=== PATIENT | male | born 1975 | race Asian ===

== ENCOUNTER 2019-07-21 13:41 | Emergency (ER) | payer OTHER, SELFPAY ==
[2019-07-21 13:47] VITALS: BP 134/87; PULSE 81; RESP 16; TEMP 36.9; O2SAT 97; BMI 26.3
--- NOTE | 2019-07-21 14:26 | ED.GENADULT ---
HPI - General Adult General Chief complaint: Diabetic Problem Stated complaint: Diabetic, shaking Time Seen by Provider: 07/21/19 13:51 Source: patient Mode of arrival: ambulatory Limitations: no limitations History of Present Illness HPI narrative: Patient comes emergency department complaining of shakiness and wondering if his blood sugars low. Patient is a diabetic who is been stable on the same dose of metformin for years, but states that he has not eaten as much today as he normally would. 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 He states that he normally eats rice in the morning, but this morning, only had a couple of bananas and later, a snack. Patient has been taking his medications as usual. Patient denies any recent heavy alcohol intake. No recent illness. He is not feeling ill in any way. No nausea or vomiting. No chest pain or shortness of breath. No other complaints at this time. Related Data Home Medications Medication Instructions Recorded Confirmed metformin 500 mg PO DAILY 07/21/19 simvastatin 20 mg PO DAILY 07/21/19 07/21/19 Allergies Allergy/AdvReac Type Severity Reaction Status Date / Time No Known Drug Allergies Allergy Verified 07/21/19 13:47 Review of Systems Review of Systems ROS Unobtainable: All systems reviewed & are unremarkable except as noted in HPI and below Constitutional Constitutional: Denies chills, Denies fatigue, Denies fever(s), Denies frequent falls, Denies lethargy and Denies weakness Eyes Eyes: Denies change in vision, Denies eye discharge, Denies irritation and Denies loss of vision ENT Ears, Nose, Mouth, and Throat: Denies change in voice, Denies dizziness, Denies neck pain, Denies sore throat and Denies throat swelling Cardiovascular Cardiovascular: Denies chest pain, Denies irregular heart rhythm, Denies lightheadedness, Denies palpitations, Denies dyspnea, Denies dyspnea on exertion and Denies orthopnea Respiratory Respiratory: Denies cough, Denies dyspnea, Denies dyspnea on exertion and Denies wheezing Gastrointestinal Gastrointestinal: Denies abdominal pain, Denies change in bowel habits, Denies diarrhea, Denies nausea and Denies vomiting Genitourinary Genitourinary: Denies hematuria, Denies flank pain, Denies urinary incontinence and Denies urinary urgency Musculoskeletal Musculoskeletal: Denies back pain, Denies muscle weakness, Denies neck pain, Denies numbness and Denies tingling Integumentary/Breasts Skin/Breast: Denies pruritus, Denies erythema, Denies rash and Denies wounds Neurologic Neurologic: Denies behavioral changes, Denies confusion, Denies dizziness, Denies frequent falls, Denies loss of vision, Denies numbness, Denies tingling and Denies weakness Psychiatric Psychiatric: Denies anxiety, Denies behavioral changes, Denies confusion, Denies depression, Denies homicidal ideation and Denies suicidal ideation Endocrine Endocrine: Denies fatigue, Denies flushing and Denies palpitations Hematologic/Lymphatic Hematologic/Lymphatic: Denies easy bruising Allergic/Immunologic Allergic/Immunologic: Denies urticaria, Denies throat swelling and Denies wheezing [facility] Medical History Diabetes mellitus (Acute) Hyperlipidemia (Acute) Surgical History No pertinent past surgical history (Acute) Social History Smoking Status: Never smoker Social History Smoking Status: Never smoker Exam Initial Vital Signs Initial Vital Signs: Vital Signs Temperature 98.5 F 07/21/19 13:47 Pulse Rate 81 07/21/19 13:47 Respiratory Rate 16 07/21/19 13:47 Blood Pressure 134/87 07/21/19 13:47 Pulse Oximetry 97 07/21/19 13:47 Const General: cooperative and well developed Nutritional Appearance: well nourished Orientation: alert, awake, oriented x3 and not confused [facility] Head: normocephalic and atraumatic Ears: external ears normal Nose: external nose normal and No nasal discharge Face and sinus: face symmetric and No dry mucous membranes Mouth: oral mucosae normal and moist mucous membranes Teeth and gingiva: dentition normal Eyes General: appearance normal, both eyes and all related structures Eyelids: eyelids normal Conjunctivae: conjunctivae normal Sclera: sclerae normal Pupils: PERRL EOM: EOM intact bilaterally Neck Neck: normal visual inspection, trachea midline, No lymphadenopathy, No midline deformity and No JVD Lymphatic: No lymphedema Chest Chest: normal inspection of the chest Resp Effort & Inspection: normal respiratory effort, able to speak in complete sentences, no respiratory distress and no use of accessory muscles Auscultation: clear to auscultation bilaterally, no rales, no rhonchi and no wheezes Cardio Rate: regular rate Rhythm: regular rhythm Heart Sounds: no click, no gallops, no murmurs and no rubs Pulses: normal peripheral pulses GI Inspection: non-distended Palpation: soft, no hepatosplenomegaly, No guarding, No pulsatile mass and No tender Back/Spine/Pelvis Back: No CVA tenderness Cervical Spine: cervical ROM normal and No pain with cervical ROM Thoracic/Lumbar Spine: thoracic and lumbar spine normal to inspection Skin General: no rashes or lesions noted, No jaundice and No petechiae Neuro General: alert, oriented x3, gait normal and no focal motor deficits Speech: speech normal Extrem General: full ROM, no clubbing, cyanosis or edema, no pedal edema and no calf tenderness Psych Appearance: well kempt Mental Status: mental status grossly normal Attitude: cooperative Thought Content: normal and suicidality Judgment: judgment good Course Course Course Narrative: Patient was very well-appearing in the emergency department. His fingerstick glucose was 134. He was given a sandwich and warm blankets and reported feeling much better. He had not been ill in any other way, and I did not feel that further workup was indicated. 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 I have discussed with the patient's superior that they should make sure that he has plenty of food when he needs to and that he is allowed to go at his own pace for the physical activities. We have discussed home management of symptoms, as well as the usual indications for return. Vital Signs Vital signs: Vital Signs - 8 hr 07/21/19 13:47 Temperature 98.5 F Pulse Rate 81 Respiratory Rate 16 Blood Pressure 134/87 Pulse Oximetry 97 Medical Decision Making Medical Records Medical records reviewed: Yes I reviewed the patient's medical records. Lab Data Lab results reviewed: Yes I reviewed the patient's lab results. 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
--- NOTE | 2019-07-21 14:39 | PC.NURSE ---
P has been outside and in water as well.
== END 2019-07-21 14:32 | disposition home or self-care (01) ==
PROVIDERS: Emergency Provider Emergency Medicine
DX: E11.9 Type 2 diabetes mellitus without complications (principal)
CPT/HCPCS: 82962; 99282; 99283

== ENCOUNTER → 2023-07-16 13:45 | Outpatient (CLI) | payer OTHER, SELFPAY ==
--- NOTE | 2023-07-16 | DI.ECHO.S_ITS ---
[facility] +---------+ : : [address] : [place] : : : : [id number] : : : : Phone: [phone]+ Echocardiogram Report + + :Name: RABIA BOUDREAUX Study Date: 07/16/2023 Height: 66 in : :[facility] ReadingLocation: Weight: 163 lb : : Gender: Male BSA: 1.8 m2 : :: 1975 Age: 48 yrs BP: 149/96 mmHg: :Reason For Study: CHEST PAIN : :Ordering Physician: JULIO C, : :MICHELA Downs Performed By: Rachel Keller : :Referring: MICHELA SETHI : + + Interpretation Summary The ejection fraction is estimated to be 55-60%. Diastolic parameters suggest probable normal left ventricular diastolic function and normal filling pressures. The right ventricle is normal in size and function. There is mild aortic regurgitation. Pulmonary artery pressures cannot be estimated because of the lack of a measurable TR jet velocity. Procedure: A two-dimensional transthoracic echocardiogram with color flow and Doppler was performed. The study quality was technically adequate. There is no prior echocardiogram noted for this patient. The patient was in sinus rhythm with heart rates between 60-65 bpm during the exam. Left Ventricle: The left ventricle is normal in size and wall thickness. The ejection fraction is estimated to be 55-60%. Diastolic parameters suggest probable normal left ventricular diastolic function and normal filling pressures. Right Ventricle: The right ventricle is normal in size and function. Atria: The left atrial size is normal. Right atrial size is normal. There is no Doppler evidence for an interatrial shunt. Mitral Valve: The mitral valve is normal in structure and function. There is trace mitral regurgitation. Aortic Valve: The aortic valve is trileaflet. The aortic valve opens well. There is no aortic valve stenosis. There is mild aortic regurgitation. Tricuspid Valve: The tricuspid valve is normal in structure and function. There is trace tricuspid regurgitation. Pulmonary artery pressures cannot be estimated because of the lack of a measurable TR jet velocity. Pulmonic Valve: The pulmonic valve leaflets are thin and pliable; valve motion is normal. There is no pulmonic valvular regurgitation. Great Vessels: The aortic root is normal size. The dimensions of the ascending aorta are normal. The IVC is of normal diameter and collapses greater than 50% with a sniff. This suggests a low right atrial pressure of 3 mm Hg. Pericardium/ Pleura There is no pericardial effusion. There is no pleural effusion. MMode/2D Measurements & Calculations LVIDd: 5.4 cm LVOT diam: 2.3 cm LVIDs: 3.4 cm Ao root diam: 3.2 cm FS: 37.6 % asc Aorta Diam: 3.3 cm EPSS: 1.3 cm Ao Arch Diam (Prox Trans): 2.6 cm IVSd: 1.0 cm LVPWd: 0.95 cm LV lanza. diameter/BSA (cm/m^2): 2.9 LV sys. diameter/BSA (cm/m^2): 1.8 LA A2 area: 19.9 cm2 RA long axis: 5.2 cm LA A4 area: 16.4 cm2 RA area: 14.8 cm2 LA length (vol): 4.8 cm RA vol: 36.0 ml LA vol: 58.2 ml RA : 19.7 ml/m2 LA vol index: 31.7 ml/m2 IVC diam: 1.1 cm RVD1 (basal): 4.1 cm RVD2 (mid): 3.0 cm TAPSE: 2.2 cm Doppler Measurements & Calculations Ao V2 max: 106.8 cm/sec LVOT Max Lenard: 83.3 cm/sec Ao V2 mean: 79.0 cm/sec LV V1 max P.8 mmHg Ao max P.6 mmHg LV V1 VTI: 17.1 cm Ao mean P.7 mmHg CLARITZA(I,D): 3.0 cm2 Ao V2 VTI: 24.4 cm CLARITZA(V,D): 3.4 cm2 sev ratio: 0.70 CLARITZA indexed to BSA (cm^2/m^2): 1.7 AI P1/2t: 875.9 msec AI dec slope: 151.6 cm/sec2 MV E max lenard: 50.2 cm/sec PA V2 max: 111.7 cm/sec MV A max lenard: 55.5 cm/sec PA V2 mean: 69.9 cm/sec MV E/A: 0.90 PA mean P.3 mmHg Med Peak E' Lenard: 4.9 cm/sec PA pr(Accel): 31.0 mmHg E/E' med: 10.2 Lat Peak E' Lenard: 7.8 cm/sec E/E' lat: 6.4 E/e' average: 8.3 MV dec time: 0.16 sec SV(LVOT): 74.3 ml Reading Physician:09:17 AM
--- NOTE | 2023-07-17 01:50 | DI.NM.S_ITS ---
DATE OF SERVICE: 07/16/2023 PROCEDURE: Exercise stress test. INDICATIONS: Chest pain, palpitation, shortness of breath. CARDIAC STRESS: The patient underwent exercise stress test under the supervision of an attending staff. He walked on Jose protocol for 12 minutes and 25 seconds, achieved maximum heart rate of 160, which was 93% of target heart rate, 12.8 METs of workload, MINNIE -13%. Resting blood pressure 140/80 and peak blood pressure 200/90 mmHg. Baseline rhythm sinus. During stress, no convincing ischemic changes or significant arrhythmias seen. No anginal symptoms or claudication symptoms. The patient felt fatigue. CONCLUSION: Exercise stress test is negative for inducible ischemia. Good exercise tolerance. Normal hemodynamic response. No ischemic electrocardiographic changes or significant arrhythmias or anginal symptoms. Overall, low-risk exercise stress test. Bhaskar Htafield - EMEARLD/brendan/kt doc#: [id number]/job#: [id number] dd: 07/16/2023 16:54:00 dt: 07/17/2023 01:41:00 DICTATING /COPIES TO: José Miguel Boss MD COPIES MNE: DANIELLA;
== END ==
PROVIDERS: Referring Provider Internal Medicine Cardiovascular Disease; Visit Provider Internal Medicine Cardiovascular Disease
DX: R07.9 Chest pain, unspecified (principal); R06.09 Other forms of dyspnea; I35.1 Nonrheumatic aortic (valve) insufficiency
CPT/HCPCS: 93017; 93306

== ENCOUNTER → 2025-04-14 11:05 | Outpatient (CLI) | payer OTHER, SELFPAY ==
--- NOTE | 2025-04-14 11:07 | DI.CT.S_ITS ---
PROCEDURE: CT CERVICAL SPINE WO CON INDICATIONS: Cervical spondylosis TECHNIQUE: Noncontrast 3 mm thick sections acquired from the skull base to the T4 level. Sagittal and coronal reformats were then constructed. Oblique axial images were also reformatted through the disc levels. For radiation dose reduction, the following was used: automated exposure control, adjustment of mA and/or kV according to patient size. COMPARISON: [facility], MR, MR BRAIN WITHOUT CONTRAST, 10/21/2024, 17:45. FINDINGS: Image quality: Excellent. Bones: No acute fractures or dislocations. Remote, healed right posterior rib fractures can be seen. The Visualized superior ribs are intact. Areas of ossification of the posterior longitudinal ligament can be seen extending from the superior aspect of C3 through the superior aspect of C7. Associated mild central canal narrowing can be seen. At the C5-C6 level, there is moderate disc space narrowing. Endplate irregularity and sclerosis can be seen. There is a superimposed central disc osteophyte protrusion. Soft tissues: Prevertebral soft tissues are normal in thickness. No paravertebral hematomas. No apical pneumothoraces. Bilateral tonsilloliths are incidentally noted. IMPRESSION: Focal C5-C6 degenerative change. Ossification of the posterior longitudinal ligament noted. Dictated by: Julian Bynum M.D. on 04/14/2025 at 16:55 Approved by: Julian Bynum M.D. on 04/14/2025 at 16:57
== END ==
LOC: CT 11:06
PROVIDERS: Referring Provider Neurological Surgery; Visit Provider Neurological Surgery
DX: M47.22 Other spondylosis with radiculopathy, cervical region (principal)
CPT/HCPCS: 72125